=== PATIENT | female | born 1960 | race Caucasian/White ===

== ENCOUNTER → 2016-04-22 | Outpatient (CLI) | payer MEDICARE, MEDICAID ==
[~2016-04-22] MED LIST: ACYSUS PO; AMIT10TA6 PO; AZIT-21 PO; CALC-817 PO; CALC600T12 PO; CALC625T68 PO; CHOL40002 PO; CODE118S2; CODE118S2 PO; CYAN50003 PO; CYCL10TA45 GT; CYCL10TA9 PO; DEXL60CA5 PO; DICY10CA12 PO; FLUO20CA25 PO; FLUO20CA42 PO; GABAPENTIN; GBPN100C PO; HYDR-3730 PO; MAG30ORA2 PO; MULT-974 PO; NF-TYLARTH PO; OMEP20CA6 PO; OMEP40CA36 PO; PHEN118S12 PO; PNT40TEC PO; PRV20T PO; RT-ALBUINH IH; SIME180C48 PO; SIME80TA PO; SUCR1TAB23 PO; TYLENOL NO 3; ZINC PO
--- NOTE | 2016-04-22 10:02 | Diagnostic Imaging Report ---
Bilateral screening mammogram The current study was also evaluated with a Computer Aided Detection (CAD) system. INDICATION: Screening. No current complaints stated on the questionnaire. COMPARISON: 04/21/15. FINDINGS: The breasts are composed of scattered fibroglandular densities. There is a new 5 mm nodule seen in the lateral aspect of the left breast. Other prior nodules possibly cysts appear stable in both breasts. Scattered benign-appearing calcifications are seen. IMPRESSION: 5 mm new nodule in the outer aspect of the left breast. Focal compression views and ultrasound evaluation recommended. ACR BI-RADS Category 0: Incomplete. (Needs additional imaging evaluation). Result letter will be mailed to the patient. Note: At least 10% of breast cancer is not imaged by mammography. Dictated by: Dictated on workstation # [id number]
== END ==
LOC: RAD 08:57
PROVIDERS: ATTEND Family Medicine
DX: Z12.31 Encounter for screening mammogram for malignant neoplasm of breast (principal)

== ENCOUNTER → 2016-05-03 | Outpatient (CLI) | payer MEDICARE, MEDICAID ==
--- NOTE | 2016-05-03 09:19 | Diagnostic Imaging Report ---
EXAMINATION: CC and lateral diagnostic mammogram of the left breast with a Computer Aided Detection (CAD) system. INDICATION: Nodular densities in the outer aspect of the left breast. Some nodules were seen on the prior exams. FINDINGS: Focal compression views confirm three underlying adjacent nodules in the outer aspect of the left breast projecting similarly on the CC projection and are at the nipple line in the superior aspect of the left breast on the lateral view. No suspicious calcifications are seen. IMPRESSION: Indeterminate nodules in the outer aspect of the left breast. An ultrasound evaluation is pending. ACR BI-RADS Category 0: Incomplete. (Needs additional imaging evaluation). Result letter will be mailed to the patient. Note: At least 10% of breast cancer is not imaged by mammography. Dictated by: Dictated on workstation # [id number]
--- NOTE | 2016-05-03 09:20 | Diagnostic Imaging Report ---
EXAMINATION: Left breast ultrasound. INDICATION: Breast nodules seen on mammography. FINDINGS: The retroareolar area and 4 quadrants of the left breast were scanned with no underlying abnormality identified. IMPRESSION: Negative study. The subcentimeter nodules seen on mammography appear to be well defined and are likely benign in etiology. A 6 month followup left breast mammogram to ensure stability would be recommended. ACR BI-RADS Category 3: Probably benign findings. Dictated by: Dictated on workstation # [id number]
== END ==
LOC: RAD 07:34
PROVIDERS: ATTEND Family Medicine
DX: N63 Unspecified lump in breast (principal)
CPT/HCPCS: 76642

== ENCOUNTER 2016-08-12 09:30 | Outpatient (RCR) | payer MEDICARE, MEDICAID | END 2016-09-01 09:09 | disposition home or self-care (01) | PROVIDERS: ATTEND Allergy & Immunology | DX: M47.816 Spondylosis without myelopathy or radiculopathy, lumbar region (principal) ==

== ENCOUNTER 2016-09-11 14:18 | Emergency (ER) | payer MEDICARE, MEDICAID ==
[~2016-09-11] VITALS: Ht 152.4 cm; Wt 55.8 kg
--- NOTE | 2016-09-11 15:09 | Diagnostic Imaging Report ---
INDICATION: One-month history of cough. Smoking history. EXAMINATION: Two views of the chest were obtained. COMPARISON: 03/08/2016. FINDINGS: The hilar and mediastinal contours are stable and normal. There is no evidence for pneumonia. Seen only in the lateral view is some increased density projecting over the sixth thoracic vertebral body at its posteroinferior aspect. In light of history of smoking and persistent cough, further workup of this density with chest CT is recommended to more confidently exclude an underlying mass or focal infiltrate. No other potential pathology. IMPRESSION: Questionable findings for mass versus infiltrate projecting over the mid thoracic spine imperceptible on the frontal view and therefore cannot be lateralized. Findings of uncertain and questionable significance, however, in the setting of a smoking history and a persistent cough, workup with chest CT is suggested. This would not require IV contrast. Dictated by: Dictated on workstation # [id number]
--- NOTE | 2016-09-11 15:14 | ED Cough/URI ---
General Chief Complaint: Cough/Cold/Flu Symptoms Stated Complaint: COUGH/BILAT EAR PAIN Nursing Triage Note: c/o cough x 1 month. Today, patient noticed sore throat, ear pressure, and headache. Source: patient Exam Limitations: no limitations History of Present Illness Time seen by provider: 15:13 Initial Comments Patient presents to the ED with c/o 1 month onset of cough. Today noticed having a sore throat, bilateral ear pain/pressure, headache, and generalized malaise. Denies N/V/D. Timing/Duration: constant, other (1 month cough. today has UR sympotoms) Severity/Quality: dry cough Prior Episodes/Possible Cause: occasional episodes Modifying Factors: Worse With Coughing Allergies and Home Medications Allergies Coded Allergies: aspirin (Verified Allergy, Intermediate, GI UPSET, 05/29/15) tetracycline (Unverified Allergy, Unknown, 05/29/15) Home Medications Acetaminophen 650 Mg Cplt, 650 MG PO BID, (Reported) Albuterol Sulfate 1 Puff Puff, 1 PUFF IH Q4H, (Reported) Amitriptyline Hcl 10 Mg Tablet, 1 EACH PO TID, (Reported) Azithromycin 250 Mg Tablet, 250 MG PO UD, #6 Ref 0 TAKE 2 TABLETS TODAY, THEN TAKE 1 TABLET DAILY FOR 4 MORE DAYS Prescribed by: KATIA GLOVER on 09/11/16 1627 Calcium Carbonate 600 Mg Tablet, 600 MG PO BID, (Reported) Calcium Polycarbophil 625 Mg Tablet, 625 MG PO DAILY, (Reported) Cholecalciferol (Vitamin D3) 4,000 Unit Capsule, 5,000 UNIT PO DAILY, (Reported) Cyanocobalamin (Vitamin B-12) 5,000 Mcg Tab.rapdis, 5,000 MCG PO DAILY, ( Reported) Dicyclomine Hcl 10 Mg Capsule, 10 MG PO TID, (Reported) Fluoxetine HCl 20 Mg Capsule, 20 MG PO TID, (Reported) Fluoxetine Hcl 20 Mg Capsule, 3 EACH PO DAILY, (Reported) Gabapentin 100 Mg Cap, 200 MG PO TID, (Reported) Hydrocodone/Acetaminophen 1 Each Tablet, 1-2 EACH PO Q6H, #35 Prescribed by: JAZIEL SANDOVAL on 06/04/15 0905 Mag Hydrox/Al Hydrox/Simeth 30 Ml Oral.susp, 10 ML PO QID PRN for INDIGESTION, ( Reported) Multivitamin 1 Each Tablet, 1 EACH PO DAILY, (Reported) Omeprazole 40 Mg Capsule.dr, 40 MG PO BID, (Reported) Pravastatin Sod 20 Mg Tab, 40 MG PO DAILY, (Reported) Promethazine HCl/Codeine 118 Ml Syrup, #120 (Reported) Promethazine HCl/Codeine 118 Ml Syrup, 5 ML PO Q6H PRN for COUGH, #120 Ref 0 Prescribed by: KATIA GLOVER on 09/11/16 1627 Promethazine/Phenyleph/Codeine 118 Ml Syrup, 5 ML PO Q6H PRN for cough, #120 Ref 0 Prescribed by: DENISE ALAS on 09/04/15 1023 Simethicone 180 Mg Capsule, 180 MG PO PRN, (Reported) [Zinc] , 50 MG PO DAILY, (Reported) Constitutional: No chills, No dizziness, No fever, malaise, No weakness EENTM: ear pain, nose congestion, see HPI, throat pain, No ear discharge, No hearing loss, No throat swelling Respiratory: see HPI, cough, No dyspnea on exertion, No hemoptysis, No orthopnea, No phlegm, No short of breath, No wheezing Cardiovascular: no symptoms reported Gastrointestinal: No abdominal pain, No diarrhea, No loss of appetite, No nausea, No vomiting Genitourinary: no symptoms reported Musculoskeletal: no symptoms reported Skin: no symptoms reported Psychiatric/Neurological: Headache, Denies Numbness, Denies Paresthesia, Denies Tingling, Denies Weakness All Other Systems Reviewed Negative Unless Noted: Yes (Negative excepted noted.) Past Ioostaf-Rflovl-Henqtc Hx Patient Social History Alcohol Use: Denies Use Recreational Drug Use: No Smoking Status: Current Everyday Smoker Recent Foreign Travel: No Contact w/Someone Who Travel: No Recent Infectious Disease Expo: No Recent Hopitalizations: No Immunizations Up To Date Date of Pneumonia Vaccine: Dec 16, 2010 Date of Influenza Vaccine: Jan 16, 2016 Seasonal Allergies Seasonal Allergies: No Surgeries HX Surgeries: Yes (OVARIAN CYST REMOVED, RIGHT INGUINAL HERNIA, ) Surgeries: Appendectomy, Hysterectomy, Oophorectomy Respiratory Hx Respiratory Disorders: Yes (USES INHALER AND NEBULIZER, HAS SPOT ON LUNG- GOING FOR FOLLOW UP) Cardiovascular Hx Cardiac Disorders: Yes Cardiac Disorders: High Cholesterol Neurological Hx Neurological Disorders: No Genitourinary Hx Genitourinary Disorders: No Gastrointestinal Hx Gastrointestinal Disorders: Yes (SPASTIC COLON) Gastrointestinal Disorders: Gastroesophageal Reflux, Diverticulosis, Hiatal Hernia, Irritable Bowel Musculoskeletal Hx Musculoskeletal Disorders: Yes (CHRONIC FATIGUE, OSTEOARTHRITIS) Musculoskeletal Disorders: Osteoporosis, Arthritis, Fibromyalgia, Chronic Back Pain Endocrine Hx Endocrine Disorders: Yes (LOW IMMUNE SYSTEM) HEENT HX ENT Disorders: Yes (GLASSES) Loss of Vision: Bilateral Hearing Impairment: Denies Cancer Hx Cancer: No Psychosocial Hx Psychiatric Problems: Yes Behavioral Health Disorders: Anxiety, Depression Integumentary HX Skin/Integumentary Disorder: Yes (HX SHINGLES) Blood Transfusions Hx Blood Disorders: No Adverse Reaction to a Blood Tr: No Reviewed Nursing Assessment Reviewed/Agree w Nursing PMH: Yes Family Medical History Significant Family History: No Pertinent Family Hx Physical Exam Vital Signs Vital Sign - Last 12Hours 09/11/16 14:32 Temp 98.6 B/P (MAP) 126/103 Pulse Ox 98 O2 Delivery Room Air Capillary Refill : Less Than 3 Seconds General Appearance: WD/WN, no apparent distress Eyes: Bilateral Eye EOMI, Bilateral Eye Normal Inspection, Bilateral Eye PERRL HEENT: PERRL/EOMI, photophobia, pharyngeal erythema, No tonsillar exudate, other (bilateral cerumen obscuring the TM's. rt nasal mucosal swelling w/o drainage. non-tender sinuses. (+) nasal congestion.) Neck: non-tender, full range of motion, supple, normal inspection Respiratory: lungs clear, normal breath sounds, no respiratory distress Cardiovascular: regular rate, rhythm, no edema, no murmur Gastrointestinal: non tender, soft, No distended Extremities: no pedal edema, normal capillary refill Neurologic/Psychiatric: alert, normal mood/affect, oriented x 3 Skin: normal color, warm/dry Progress/Results/Core Measures Results/Orders My Orders Orders - KATIA GLOVER Chest Pa/Lat (2 View) (09/11/16 14:42) Ct Chest Wo (09/11/16 15:24) Hydrocodone/Apap 7.5/325 Tab (Lortab 7. (09/11/16 15:47) Benzonatate Capsule (Tessalon Perles) (09/11/16 16:00) Medications Given in ED Current Medications Medications Dose Ordered Sig/Isabel Route Start Time Stop Time Status Last Admin Dose Admin Benzonatate 200 mg ONCE ONCE PO 09/11/16 16:00 09/11/16 16:01 DC 09/11/16 16:03 200 MG Vital Signs/I&O Vital Sign - Last 12Hours 09/11/16 09/11/16 09/11/16 14:32 14:36 16:03 Temp 98.6 98.6 B/P (MAP) 126/103 Pulse Ox 98 O2 Delivery Room Air Room Air Blood Pressure Mean: 111 Diagnostic Imaging Diagonstic Imaging: Xray Plain Films/CT/US/NM/MRI: chest Reviewed: Reviewed by Me (radiology report reviewed by me.) Diagonstic Imaging: CT Plain Films/CT/US/NM/MRI: chest Comments FINDINGS: Lungs and airway: No endoluminal lesion in the trachea or central bronchi. No pulmonary mass or consolidation. Specifically, there is no paraspinal mass lesion to correspond to radiographic abnormality. 5 mm right lower lobe pulmonary nodule (image 36, series 2). Pleura: No pleural effusion or pneumothorax. Heart and mediastinum: Visualized thyroid is normal. No supraclavicular or axillary lymphadenopathy. No mediastinal, discrete hilar or juxtaphrenic lymphadenopathy. Heart is normal in size without pericardial effusion. Normal caliber thoracic aorta. Upper abdomen: Unenhanced upper abdomen is grossly normal with the exception of atherosclerotic calcifications of the aorta. Musculoskeletal: No concerning focal osseous lesion. No sclerotic focus to account for abnormality seen on radiograph. IMPRESSION: 1. No consolidation or mass to account for the abnormality seen on the lateral chest radiograph. This abnormality on chest radiograph is likely due to volume averaging of normal pulmonary vasculature and osseous structures. 2. Incidental note is made of a 5 mm right lower lobe pulmonary nodule. If the patient has a smoking history, followup CT chest in 6-12 months is advised to assess stability. 3. No acute cardiopulmonary process. Dictated by: Dictated on workstation # [id number] Reviewed: Reviewed by Me (radiology report reviewed by me. ) Departure Communication Progress Notes Chest x-ray findings suspicious for a mass or infiltrate overlying the thoracic spine. Radiologist recommended CT chest without contrast. I discussed this with the patient. Patient is agreeable to proceeding with CT scan of the chest. 1605 diagnostic findings discussed with the patient. Plan for discharge to home. Impression Impression: Primary Impression: Upper respiratory infection Qualified Codes: J06.9 - Acute upper respiratory infection, unspecified Additional Impression: Cough Disposition: 01 HOME, SELF-CARE Condition: Improved Departure-Patient Inst. Decision time for Depature: 16:08 Referrals: LINDSEY CAMPBELL MD (PCP) Primary Care Physician JEAN-PIERRE REYNAGA MD (Family) Primary Care Physician Patient Instructions: Bacterial Upper Respiratory Infection, Adult (DC), Cough , Adult (DC) Add. Discharge Instructions: All discharge instructions reviewed with patient and/or family. Voiced understanding. Medications as instructed. Tylenol Extra Strength over-the- counter as directed for headache or pain. Ibuprofen 800 mg by mouth every 8 hours as needed for pain or headache. Cool humidifier. Saline nasal spray and Afrin nasal spray [id number] as directed for nasal congestion. Follow-up with Dr. Campbell as an outpatient for recheck if needed. Return to the emergency department for worsened symptoms or any other concerns. Scripts Azithromycin (Zithromax) 250 Mg Tablet 250 MG PO UD, #6 TAB 0 Refills TAKE 2 TABLETS TODAY, THEN TAKE 1 TABLET DAILY FOR 4 MORE DAYS Prov: KATIA GLOVER 09/11/16 Promethazine HCl/Codeine (Promethazine-Codeine Syrup) 118 Ml Syrup 5 ML PO Q6H Y for COUGH, #120 ML 0 Refills Prov: KATIA GLOVER 09/11/16 KATIA GLOVER September 11, 2016 15:14
[2016-09-11] MEDS ORDERED: HYDROcodone/APAP 7.5 MG/325 MG (LORTAB, LORCET PLUS) TABLET PO STA (15:47)
[2016-09-11] MEDS ORDERED: BENZONATATE 100 MG (TESSALON) CAPSULE PO ONE (16:00)
--- NOTE | 2016-09-11 16:14 | Diagnostic Imaging Report ---
PROCEDURE: CT chest without contrast. TECHNIQUE: Multiple contiguous axial images were obtained through the chest without the use of intravenous contrast. INDICATION: Further evaluation of abnormal density seen on chest radiograph. COMPARISON: Chest radiograph of 09/11/2016. FINDINGS: Lungs and airway: No endoluminal lesion in the trachea or central bronchi. No pulmonary mass or consolidation. Specifically, there is no paraspinal mass lesion to correspond to radiographic abnormality. 5 mm right lower lobe pulmonary nodule (image 36, series 2). Pleura: No pleural effusion or pneumothorax. Heart and mediastinum: Visualized thyroid is normal. No supraclavicular or axillary lymphadenopathy. No mediastinal, discrete hilar or juxtaphrenic lymphadenopathy. Heart is normal in size without pericardial effusion. Normal caliber thoracic aorta. Upper abdomen: Unenhanced upper abdomen is grossly normal with the exception of atherosclerotic calcifications of the aorta. Musculoskeletal: No concerning focal osseous lesion. No sclerotic focus to account for abnormality seen on radiograph. IMPRESSION: 1. No consolidation or mass to account for the abnormality seen on the lateral chest radiograph. This abnormality on chest radiograph is likely due to volume averaging of normal pulmonary vasculature and osseous structures. 2. Incidental note is made of a 5 mm right lower lobe pulmonary nodule. If the patient has a smoking history, followup CT chest in 6-12 months is advised to assess stability. 3. No acute cardiopulmonary process. Dictated by: Dictated on workstation # [id number]
[2016-09-11] MEDS ORDERED: CODE118S2 PO (16:27)
[2016-09-11] MEDS ORDERED: AZIT250T PO (16:27)
[2016-09-11 16:35] VITALS: BP 124/90
== END 2016-09-11 16:35 | disposition home or self-care (01) ==
LOC: EDUNIT# 14:18 → ER 14:19
DX: J06.9 Acute upper respiratory infection, unspecified (principal); R91.1 Solitary pulmonary nodule; F17.210 Nicotine dependence, cigarettes, uncomplicated; Z79.899 Other long term (current) drug therapy
CPT/HCPCS: 71020; 71250; 99282

== ENCOUNTER → 2016-09-15 | Outpatient (CLI) | payer MEDICARE, MEDICAID ==
[~2016-09-15] MED LIST changes: +AZIT250T PO
[2016-09-15 13:57] LABS: MEAN PLATELET VOLUME 10.2 FL (7.4-10.4); RED BLOOD COUNT 4.18 10^6/uL (4.35-5.85); RED CELL DISTRIBUTION WIDTH 14.4 % (10.0-14.5); WHITE BLOOD COUNT 14.7 10^3/uL (4.3-11.0)
== END ==
LOC: LAB 13:42
PROVIDERS: ATTEND Nurse Practitioner Family
DX: J01.10 Acute frontal sinusitis, unspecified (principal); R05 Cough
CPT/HCPCS: 36415; 85027

== ENCOUNTER → 2016-10-31 | Outpatient (CLI) | payer MEDICARE, MEDICAID ==
--- NOTE | 2016-10-31 15:19 | Diagnostic Imaging Report ---
EXAMINATION: Left breast diagnostic mammogram with tomosynthesis performed. The current study was also evaluated with a Computer Aided Detection (CAD) system. INDICATION: Followup asymmetries in the lateral aspect of the left breast. COMPARISON: 05/03/2016 exam. FINDINGS: The previously seen asymmetries along the lateral aspect of the left breast appear less prominent on the current exam with one component on the lateral view near completely disappeared and the other component appears slightly smaller. This is in favor of a transient benign process. No adverse development. IMPRESSION: Diminished appearance of the asymmetries previously seen in the outer aspect of the left breast in favor of a benign process. Annual screening mammogram followup is recommended with the next bilateral exam due in April 2017. ACR BI-RADS Category 2: Benign findings. Result letter will be mailed to the patient. Note: At least 10% of breast cancer is not imaged by mammography. Dictated by: Dictated on workstation # [id number]
== END ==
LOC: RAD 07:49
PROVIDERS: ATTEND Family Medicine
DX: N64.89 Other specified disorders of breast (principal)

== ENCOUNTER 2016-11-09 19:58 | Emergency (ER) | payer MEDICARE, MEDICAID ==
[~2016-11-09] VITALS: Ht 152.4 cm; Wt 55.8 kg
--- NOTE | 2016-11-09 20:22 | ED Abdominal Pain ---
General Chief Complaint: General Problems/Pain Stated Complaint: STOMACH PAIN Nursing Triage Note: PT AMBULATED TO ROOM. PT COMPLAINS OF DIARRHEA AND STOMACH PAIN SINCE APPROX. 1130 THIS MORNING. PT STATES SHE HAS HAD 5 EPISODES OF DIARRHEA SINCE 1130 THIS MORNING. Sepsis Screen: No Definite Risk Source of Information: Patient History of Present Illness Time Seen By Provider: 20:08 Initial Comments PT ARRIVES VIA POV C/O GENERALIZED ABDOMINAL PAIN SINCE AROUND 11:30 THIS AM ATE A SALAD WITH TOMATOES IN IT AROUND 11:00,AND PAIN BEGAN SHORTLY AFTERWARD ALSO HAD DIARRHEA WITH IT. HAS HAD > 5 <10 STOOLS TODAY--TOOK OTC ANTIDIARRHEAL TODAY AROUND 1:00 PM AND DIARRHEA HAS SLOWED DOWN ALSO TOOK MAALOX X 1 DOSE, WITHOUT IMPROVEMENT NO NAUSEA/VOMITING NO FEVER NO URINARY SYMPTOMS AND VOIDING A NORMAL AMOUNT--VOIDED IN WAITING ROOM HAS CONTINUED TO EAT AND DRINK THIS AFTERNOON--HAD CHICKEN AND RICE THIS AFTERNOON NO KNOWN SICK CONTACTS OR SUSPICIOUS FOODS PT STATES SHE HAS HISTORY OF SIMILAR SYMPTOMS, AND HAS HISTORY OF IBS AND SPASTIC COLON, BUT THIS "DOESN'T FEEL THE SAME" PT HAS NOT BEEN TAKING HER GI MEDICATIONS LATELY--STATES SHE "WASN'T HAVING PROBLEMS" PCP: DR. WATSON SURGEON: DR. SANDOVAL Allergies and Home Medications Allergies Coded Allergies: aspirin (Verified Allergy, Intermediate, GI UPSET, 05/29/15) tetracycline (Unverified Allergy, Unknown, 05/29/15) Home Medications Acetaminophen 650 Mg Cplt, 650 MG PO BID, (Reported) Albuterol Sulfate 1 Puff Puff, 1 PUFF IH Q4H, (Reported) Amitriptyline Hcl 10 Mg Tablet, 1 EACH PO TID, (Reported) Azithromycin 250 Mg Tablet, 250 MG PO UD, #6 Ref 0 TAKE 2 TABLETS TODAY, THEN TAKE 1 TABLET DAILY FOR 4 MORE DAYS Prescribed by: KATIA GLOVER on 09/11/16 1627 Calcium Carbonate 600 Mg Tablet, 600 MG PO BID, (Reported) Calcium Polycarbophil 625 Mg Tablet, 625 MG PO DAILY, (Reported) Cholecalciferol (Vitamin D3) 4,000 Unit Capsule, 5,000 UNIT PO DAILY, (Reported) Cyanocobalamin (Vitamin B-12) 5,000 Mcg Tab.rapdis, 5,000 MCG PO DAILY, ( Reported) Dicyclomine Hcl 10 Mg Capsule, 10 MG PO TID, (Reported) Fluoxetine HCl 20 Mg Capsule, 20 MG PO TID, (Reported) Fluoxetine Hcl 20 Mg Capsule, 3 EACH PO DAILY, (Reported) Gabapentin 100 Mg Cap, 200 MG PO TID, (Reported) Hydrocodone/Acetaminophen 1 Each Tablet, 1-2 EACH PO Q6H, #35 Prescribed by: JAZIEL SANDOVAL on 06/04/15 0905 Hyoscyamine Sulfate 0.125 Mg Tab.subl, 1-2 TAB SL Q4H, #15 Prescribed by: HALLE WATSON on 11/09/162 Lactobacillus Acidophilus 1 Each Capsule, 2 EACH PO QID, #80 Prescribed by: HALLE WATSON on 11/09/162 Mag Hydrox/Al Hydrox/Simeth 30 Ml Oral.susp, 10 ML PO QID PRN for INDIGESTION, ( Reported) Multivitamin 1 Each Tablet, 1 EACH PO DAILY, (Reported) Omeprazole 40 Mg Capsule.dr, 40 MG PO BID, (Reported) Pravastatin Sod 20 Mg Tab, 40 MG PO DAILY, (Reported) Promethazine HCl/Codeine 118 Ml Syrup, #120 (Reported) Promethazine HCl/Codeine 118 Ml Syrup, 5 ML PO Q6H PRN for COUGH, #120 Ref 0 Prescribed by: KATIA GLOVER on 09/11/16 1627 Promethazine/Phenyleph/Codeine 118 Ml Syrup, 5 ML PO Q6H PRN for cough, #120 Ref 0 Prescribed by: DENISE ALAS on 09/04/15 1023 Simethicone 180 Mg Capsule, 180 MG PO PRN, (Reported) [Zinc] , 50 MG PO DAILY, (Reported) Review of Systems Constitutional: other (CHRONICALLY TIRED) Respiratory: No Symptoms Reported Cardiovascular: No Symptoms Reported Gastrointestinal: See HPI, Abdominal Pain, Diarrhea, Denies Nausea, Denies Poor Appetite, Denies Poor Fluid Intake, Denies Rectal Bleeding, Denies Vomiting Genitourinary: No Symptoms Reported Musculoskeletal: no symptoms reported Skin: no symptoms reported Psychiatric/Neurological: No Symptoms Reported Endocrine: No Symptoms Reported Hematologic/Lymphatic: No Symptoms Reported Past Zigqiom-Qpprns-Pljdli Hx Patient Social History Alcohol Use: Occasionally Uses Recreational Drug Use: No Smoking Status: Current Everyday Smoker (3 PPD, NOW LESS THAN 1 PPD) Type Used: Cigarettes 2nd Hand Smoke Exposure: No Recent Foreign Travel: No Contact w/Someone Who Travel: No Recent Infectious Disease Expo: No Recent Hopitalizations: No Immunizations Up To Date Date of Pneumonia Vaccine: Dec 16, 2010 Date of Influenza Vaccine: Jan 16, 2016 Seasonal Allergies Seasonal Allergies: No Surgeries HX Surgeries: Yes (OVARIAN CYST REMOVED, RIGHT INGUINAL HERNIA, PERIUMBILICAL HERNIA REPAIR; HYST / BSO ; EGD) Surgeries: Abdominal, Appendectomy, Hysterectomy, Oophorectomy, Tubal Ligation Respiratory Hx Respiratory Disorders: Yes (USES INHALER AND NEBULIZER, HAS SPOT ON LUNG- GOING FOR FOLLOW UP) Respiratory Disorders: COPD Cardiovascular Hx Cardiac Disorders: Yes Cardiac Disorders: High Cholesterol Neurological Hx Neurological Disorders: No 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 System Female 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, 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 Genitourinary Hx Genitourinary Disorders: No Gastrointestinal Hx Gastrointestinal Disorders: Yes (SPASTIC COLON; GASTRITIS) Gastrointestinal Disorders: Abdominal Hernia, Gastroesophageal Reflux, Diverticulosis, Hiatal Hernia, Irritable Bowel Musculoskeletal Hx Musculoskeletal Disorders: Yes (CHRONIC FATIGUE, OSTEOARTHRITIS) Musculoskeletal Disorders: Osteoporosis, Arthritis, Fibromyalgia, Chronic Back Pain Endocrine Hx Endocrine Disorders: Yes ("LOW IMMUNE SYSTEM") HEENT HX ENT Disorders: Yes (GLASSES) Loss of Vision: Bilateral Hearing Impairment: Denies Cancer Hx Cancer: No Psychosocial Hx Psychiatric Problems: Yes Behavioral Health Disorders: Anxiety, Depression Integumentary HX Skin/Integumentary Disorder: Yes (HX SHINGLES) Blood Transfusions Hx Blood Disorders: No Adverse Reaction to a Blood Tr: No Family Medical History Significant Family History: No Pertinent Family Hx Physical Exam Vital Signs VS - Last 72 Hours, by Label 11/09/16 11/09/16 20:10 22:04 Temp 98.0 98.0 Pulse 77 77 Resp 16 16 B/P (MAP) 125/73 Pulse Ox 99 99 O2 Delivery Room Air Room Air Capillary Refill : Less Than 3 Seconds General Appearance: WD/WN, no apparent distress, other (WALKS UPRIGHT AND MOVES WITHOUT DIFFICULTY; REEKS OF CIGARETTES) HEENT: PERRL/EOMI, other (EDENTULOUS; ORAL MUCOSA MOIST) Respiratory: normal breath sounds, no respiratory distress, no accessory muscle use Cardiovascular: regular rate, rhythm, no edema, no JVD, no murmur Gastrointestinal: soft, no organomegaly, no pulsatile mass, abnormal bowel sounds (HYPERACTIVE), No distended, No guarding, No rebound, tenderness (MILD DIFFUSE), No hernia, No mass Back: normal inspection, no CVA tenderness, no vertebral tenderness 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, no motor/sensory deficits, alert, normal mood/affect, oriented x 3 Skin: normal color, warm/dry Progress/Results/Core Measures Results/Orders Lab Results Laboratory Tests Test 11/09/16 20:21 11/09/16 20:59 Range/Units White Blood Count 9.1 4.3-11.0 10^3/uL Red Blood Count 4.21 L 4.35-5.85 10^6/uL Hemoglobin 13.7 11.5-16.0 G/DL Hematocrit 41 35-52 % Mean Corpuscular Volume 97 80-99 FL Mean Corpuscular Hemoglobin 33 25-34 PG Mean Corpuscular Hemoglobin Concent 34 32-36 G/DL Red Cell Distribution Width 14.2 10.0-14.5 % Platelet Count 296 130-400 10^3/uL Mean Platelet Volume 10.3 7.4-10.4 FL Neutrophils (%) (Auto) 52 42-75 % Lymphocytes (%) (Auto) 37 12-44 % Monocytes (%) (Auto) 9 0-12 % Eosinophils (%) (Auto) 3 0-10 % Basophils (%) (Auto) 0 0-10 % Neutrophils # (Auto) 4.7 1.8-7.8 X 10^3 Lymphocytes # (Auto) 3.3 1.0-4.0 X 10^3 Monocytes # (Auto) 0.8 0.0-1.0 X 10^3 Eosinophils # (Auto) 0.2 0.0-0.3 10^3/uL Basophils # (Auto) 0.0 0.0-0.1 10^3/uL Sodium Level 143 135-145 MMOL/L Potassium Level 3.1 L 3.6-5.0 MMOL/L Chloride Level 108 H 98-107 MMOL/L Carbon Dioxide Level 29 21-32 MMOL/L Anion Gap 6 5-14 MMOL/L Blood Urea Nitrogen 7 7-18 MG/DL Creatinine 0.72 0.60-1.30 MG/DL Estimat Glomerular Filtration Rate > 60 BUN/Creatinine Ratio 10 Glucose Level 101 70-105 MG/DL Calcium Level 8.9 8.5-10.1 MG/DL Total Bilirubin 0.2 0.1-1.0 MG/DL Aspartate Amino Transf (AST/SGOT) 11 5-34 U/L Alanine Aminotransferase (ALT/SGPT) 13 0-55 U/L Alkaline Phosphatase 48 40-136 U/L Total Protein 6.2 L 6.4-8.2 GM/DL Albumin 3.9 3.2-4.5 GM/DL Amylase Level 43 25-125 U/L Lipase 51 8-78 U/L Urine Color YELLOW Urine Clarity CLEAR Urine pH 7 5-9 Urine Specific [place]ham 1.010 L 1.016-1.022 Urine Protein NEGATIVE NEGATIVE Urine Glucose (UA) NEGATIVE NEGATIVE Urine Ketones NEGATIVE NEGATIVE Urine Nitrite NEGATIVE NEGATIVE Urine Bilirubin NEGATIVE NEGATIVE Urine Urobilinogen NORMAL NORMAL MG/DL Urine Leukocyte Esterase 2+ H NEGATIVE Urine RBC (Auto) NEGATIVE NEGATIVE Urine RBC NONE /HPF Urine WBC 2-5 /HPF Urine Squamous Epithelial Cells 0-2 /HPF Urine Crystals NONE /LPF Urine Bacteria NEGATIVE /HPF Urine Casts NONE /LPF Urine Mucus NEGATIVE /LPF Urine Culture Indicated NO My Orders Orders - HALLE WATSON DO Saline Lock/Iv-Start (11/09/16 20:08) Amylase (11/09/16 20:08) Cbc With Automated Diff (11/09/16 20:08) Comprehensive Metabolic Panel (11/09/16 20:08) Lipase (11/09/16 20:08) Ua Culture If Indicated (11/09/16 20:08) Saline Lock/Iv-Start (11/09/16 20:29) Lactated Ringers (Lr 1000 Ml Iv Solution (11/09/16 20:29) Hyoscyamine Sl Tablet (Levsin Sl Tablet) (11/09/16 20:30) Ct Abdomen/Pelvis W (11/09/16 20:50) Iohexol Injection (Omnipaque 350 Mg/Ml 1 (11/09/16 21:00) Ns (Ivpb) (Sodium Chloride 0.9% Ivpb Bag (11/09/16 21:00) Rx-Hyoscyamine Tab (Rx-Levsin Sl) (11/09/16 21:53) Rx-Hyoscyamine Tab (Rx-Levsin Sl) (11/09/16 21:56) Medications Given in ED Current Medications Medications Dose Ordered Sig/Isabel Route Start Time Stop Time Status Last Admin Dose Admin Hyoscyamine Sulfate 0.25 mg ONCE ONCE PO 11/09/16 20:30 11/09/16 20:31 DC 11/09/16 20:45 0.25 MG Iohexol 100 ml ONCE ONCE IV 11/09/16 21:00 11/09/16 22:13 DC 11/09/16 21:05 100 ML Lactated Ringer's 1,000 ml @ 0 mls/hr Q0M ONCE IV 11/09/16 20:29 11/09/16 20:30 DC 11/09/16 20:46 1,000 MLS/HR Sodium Chloride 100 ml ONCE ONCE IV 11/09/16 21:00 11/09/16 22:13 DC 11/09/16 21:05 80 ML Vital Signs/I&O Vital Sign - Last 12Hours 11/09/16 11/09/16 20:10 22:04 Temp 98.0 98.0 Pulse 77 77 Resp 16 16 B/P (MAP) 125/73 Pulse Ox 99 99 O2 Delivery Room Air Room Air Intake and Output 11/10/16 00:00 Intake Total 1000 ml Balance 1000 ml Blood Pressure Mean: 90 Progress Note : Progress Note NO DIARRHEA DURING ER STAY SYMPTOMS RESOLVED AT DISMISSAL Diagnostic Imaging Comments CT ABDOMEN/[id number] FLUID FILLED SMALL BOWEL, QUESTIONABLE ENTERITIS , PER RADIOLOGIST REPORT @ 4560 Reviewed: Reviewed by Me Departure Impression Impression: Primary Impression: Enteritis Additional Impression: POSSIBLE IBS /SPASTIC COLON FLARE Disposition: 01 HOME, SELF-CARE Condition: Improved Departure-Patient Inst. Referrals: LINDSEY WATSON MD (PCP/Family) Primary Care Physician Patient Instructions: Irritable Bowel Syndrome (DC), Viral Gastroenteritis, Adult (DC) Add. Discharge Instructions: CLEAR LIQUIDS--WATER, BROTH, JELLO, GATORADE TOMORROW IF YOU ARE BETTER, ADD BRATS DIET TO CLEAR LIQUIDS--BANANAS, RICE, APPLESAUCE, TOAST, SALTINES FOLLOW UP WITH YOUR DR IN 2 DAYS IF NO BETTER All discharge instructions reviewed with patient and/or family. Voiced understanding. Scripts Hyoscyamine Sulfate (Levsin-Sl) 0.125 Mg Tab.subl 1-2 TAB SL Q4H for Abdominal Pain, #15 TAB Prov: HALLE WATSON DO 11/09/16 Lactobacillus Acidophilus (Acidophilus) 1 Each Capsule 2 EACH PO QID, #80 CAP Prov: HALLE WATSON DO 11/09/16 HALLE WATSON DO Nov 09, 2016 20:22
[2016-11-09 20:29] LABS: LYMPHOCYTES % (AUTO) 37 % (12-44); MEAN CORPUSCULAR HEMOGLOBIN 33 PG (25-34); MEAN CORPUSCULAR HGB CONC 34 G/DL (32-36); MEAN CORPUSCULAR VOLUME 97 FL (80-99); MEAN PLATELET VOLUME 10.3 FL (7.4-10.4); MONOCYTES % (AUTO) 9 % (0-12); NEUTROPHILS % (AUTO) 52 % (42-75); PLATELET COUNT 296 10^3/uL (130-400); RED BLOOD COUNT 4.21 10^6/uL (4.35-5.85); RED CELL DISTRIBUTION WIDTH 14.2 % (10.0-14.5); WHITE BLOOD COUNT 9.1 10^3/uL (4.3-11.0)
[2016-11-09] MEDS ORDERED: LACTATED RINGERS 1,000 ML IV ONE (20:29)
[2016-11-09 20:30] LABS: BASOPHILS % (AUTO) 0 % (0-10); EOSINOPHILS # (AUTO) 0.2 10^3/uL (0.0-0.3); EOSINOPHILS % (AUTO) 3 % (0-10); LYMPHOCYTES # (AUTO) 3.3 X 10^3 (1.0-4.0); MONOCYTES # (AUTO) 0.8 X 10^3 (0.0-1.0); NEUTROPHILS # (AUTO) 4.7 X 10^3 (1.8-7.8)
[2016-11-09] MEDS ORDERED: HYOSCYAMINE 0.125 MG (LEVSIN) TAB PO ONE (20:30)
[2016-11-09 20:47] LABS: ALANINE AMINOTRANSFERASE 13 U/L (0-55); ALBUMIN 3.9 GM/DL (3.2-4.5); AMYLASE 43 U/L (25-125); ANION GAP 6 MMOL/L (5-14); ASPARTATE AMINO TRANSFERASE 11 U/L (5-34); BILIRUBIN,TOTAL 0.2 MG/DL (0.1-1.0); BLOOD UREA NITROGEN 7 MG/DL (7-18); BUN/CREATININE RATIO 10; CALCIUM 8.9 MG/DL (8.5-10.1); CARBON DIOXIDE 29 MMOL/L (21-32); CHLORIDE 108 MMOL/L (98-107); CREATININE SERUM 0.72 MG/DL (0.60-1.30); GFR ESTIMATED > 60; GLUCOSE 101 MG/DL (70-105); LIPASE 51 U/L (8-78); POTASSIUM 3.1 MMOL/L (3.6-5.0); SODIUM 143 MMOL/L (135-145); TOTAL PROTEIN 6.2 GM/DL (6.4-8.2)
[2016-11-09] MEDS ORDERED: IOHEXOL 350 MG/ML 100 ML (OMNIPAQUE 350) VIAL IV ONE (21:00)
[2016-11-09] MEDS ORDERED: NS 100 ML (IVPB) BAG IV ONE (21:00)
[2016-11-09 21:04] LABS: BILIRUBIN,URINE NEGATIVE (NEGATIVE); KETONES,URINE NEGATIVE (NEGATIVE); LEUKOCYTE ESTERASE ,URINE 2+ (NEGATIVE); NITRITE,URINE NEGATIVE (NEGATIVE); PH,URINE 7 (5-9); PROTEIN,URINE NEGATIVE (NEGATIVE); UROBILINOGEN,URINE NORMAL (NORMAL)
[2016-11-09 21:12] LABS: SQUAMOUS EPITHELIAL CELL,UR 0-2 /HPF
--- NOTE | 2016-11-09 21:34 | Diagnostic Imaging Report ---
PROCEDURE: CT abdomen and pelvis with contrast. TECHNIQUE: Multiple contiguous axial images were obtained through the abdomen and pelvis after administration of intravenous contrast. INDICATION: Abdominal pain and diarrhea. Compared 10/15/2015 FINDINGS: There is noninflamed sigmoid diverticulosis. There were no findings suggestive of CT evidence for focal or generalized colitis. Pelvic small bowel loops fluid containing and borderline ectatic but no differential air-fluid levels. There are postoperative changes of repair of a supraumbilical ventral abdominal wall hernia with some regional subcutaneous and abdominal wall induration; this is unchanged from the prior. No recurrent herniated viscus. Liver, spleen, gallbladder, adrenals, pancreas and unobstructed kidneys unremarkable, nonaneurysmal atherosclerosis chronic. Urinary bladder unremarkable. There is no adnexal lesion. IMPRESSION: Noninflamed diverticulosis. No findings of colitis. There is borderline ectasia, fluid containing pelvic small bowel. This is of questionable significance, a mild enteritis could not be excluded. No obstruction, perforation, fluid collection or ascites. Stable postoperative changes to the supraumbilical ventral abdominal wall. No hepatobiliary abnormality. Dictated by: Dictated on workstation # [id number]
[2016-11-09] MEDS ORDERED: HYOS0.1283 SL (21:52)
[2016-11-09] MEDS ORDERED: LACT1CAP8 PO (21:52)
[2016-11-09] MEDS ORDERED: RX-HYOSCYAMINE 0.125 MG SL (LEVSIN) PPK#6 SL STA (21:53)
[2016-11-09] MEDS ORDERED: RX-HYOSCYAMINE 0.125 MG SL (LEVSIN) PPK#6 ONE (21:56)
[2016-11-09 22:04] VITALS: BP 125/73
== END 2016-11-09 22:04 | disposition home or self-care (01) ==
LOC: EDUNIT# 19:58 → ER 20:00
DX: K52.9 Noninfective gastroenteritis and colitis, unspecified (principal); J44.9 Chronic obstructive pulmonary disease, unspecified; E78.00 Pure hypercholesterolemia, unspecified; K21.9 Gastro-esophageal reflux disease without esophagitis; M81.0 Age-related osteoporosis without current pathological fracture; M19.90 Unspecified osteoarthritis, unspecified site; M54.9 Dorsalgia, unspecified; G89.29 Other chronic pain; F41.9 Anxiety disorder, unspecified; F32.9 Major depressive disorder, single episode, unspecified; F17.210 Nicotine dependence, cigarettes, uncomplicated; Z87.19 Personal history of other diseases of the digestive system; Z90.49 Acquired absence of other specified parts of digestive tract; Z90.710 Acquired absence of both cervix and uterus; Z98.51 Tubal ligation status
CPT/HCPCS: 36415; 74177; 80053; 81000; 82150; 83690; 85025; 96360

== ENCOUNTER → 2017-01-25 | Outpatient (CLI) | payer MEDICARE, MEDICAID ==
[~2017-01-25] MED LIST changes: +HYOS0.1283 SL; +IOHEXOL 350 MG/ML 100 ML (OMNIPAQUE 350) VIAL IV ONE; +LACT1CAP8 PO; +NS 100 ML (IVPB) BAG IV ONE
[2017-01-25 09:46] LABS: BLOOD UREA NITROGEN 13 MG/DL (7-18); BUN/CREATININE RATIO 19; CREATININE SERUM 0.68 MG/DL (0.60-1.30); GFR ESTIMATED > 60
--- NOTE | 2017-01-25 11:20 | Diagnostic Imaging Report ---
PROCEDURE: CT abdomen and pelvis with contrast. TECHNIQUE: Multiple contiguous axial images were obtained through the abdomen and pelvis after administration of intravenous contrast. INDICATION: Abdominal pain. History of umbilical hernia. 100 mL of Omnipaque 350 is administered intravenously. FINDINGS: The lung bases demonstrate minimal atelectasis. The liver, the gallbladder, the spleen, the pancreas and the adrenal glands appear unremarkable. The kidneys have symmetric contrast enhancement and excretion. There is no hydronephrosis. The abdominal aorta is normal in caliber. No para-aortic significantly enlarged lymph nodes seen. There is diverticulosis. No diverticulitis. There is evidence of prior periumbilical ventral hernia repair with a mesh seen. There is no evidence of hernia recurrence. There is nonspecific stranding seen above the umbilicus level in the subcutaneous fat which may relate to scarring. It is unchanged from 11/09/2016 exam. No significant free fluid or fluid collection in the abdomen or pelvis seen. The osseous structures appear grossly unremarkable. IMPRESSION: Post ventral hernia repair changes similar to the prior exam. Diverticulosis. No diverticulitis. Dictated by: Dictated on workstation # [id number]
== END ==
LOC: RAD 09:12
PROVIDERS: ATTEND Surgery
DX: K57.30 Diverticulosis of large intestine without perforation or abscess without bleeding (principal); Z98.890 Other specified postprocedural states; R10.84 Generalized abdominal pain
CPT/HCPCS: 36415; 74177; 82565; 84520

== ENCOUNTER 2017-09-24 18:54 | Emergency (ER) | payer MEDICARE, MEDICAID ==
[~2017-09-24] VITALS: Ht 152.4 cm; Wt 55.8 kg
[~2017-09-24 18:54] MED LIST changes: -IOHEXOL 350 MG/ML 100 ML (OMNIPAQUE 350) VIAL IV ONE; -NS 100 ML (IVPB) BAG IV ONE
--- NOTE | 2017-09-24 20:47 | ED Lower Extremity ---
General Chief Complaint: Lower Extremity Stated Complaint: R LEG TIGHTNESS/REDNESS Nursing Triage Note: c/o R lower leg pain, swelling x 2 days. patient reports taking 2 hydrocodone tablets and 1 flexeril without relief. patient reports that her cholesterol medication was recently doubled in dosage Nursing Sepsis Screen: No Definite Risk History of Present Illness Date Seen by Provider: Sep 24, 2017 Time Seen by Provider: 20:30 Initial Comments 57-year-old female Patient reports that she was walking quickly to almost a "trotting" pace on Monday when she had immediate onset of pain in her right medial gastrocnemius. Since then the pain has continued to worsen, she has been taking hydrocodone and Flexeril with minimal improvement in her symptoms. She has no history of blood clots and only risk factor is tobacco use. She has a history of restless leg syndrome and fibromyalgia. Onset: last week Pain/Injury Location: right leg Modifying Factors: Improves With Pain Medication, Improves With Rest Allergies and Home Medications Allergies Coded Allergies: aspirin (Verified Allergy, Intermediate, GI UPSET, 05/29/15) tetracycline (Unverified Allergy, Unknown, 05/29/15) Home Medications Acetaminophen 650 Mg Cplt, 650 MG PO BID, (Reported) Albuterol Sulfate 1 Puff Puff, 1 PUFF IH Q4H, (Reported) Amitriptyline Hcl 10 Mg Tablet, 1 EACH PO TID, (Reported) Calcium Carbonate 600 Mg Tablet, 600 MG PO BID, (Reported) Calcium Polycarbophil 625 Mg Tablet, 625 MG PO DAILY, (Reported) Cholecalciferol (Vitamin D3) 4,000 Unit Capsule, 5,000 UNIT PO DAILY, (Reported) Cyanocobalamin (Vitamin B-12) 5,000 Mcg Tab.rapdis, 5,000 MCG PO DAILY, ( Reported) Dicyclomine Hcl 10 Mg Capsule, 10 MG PO TID, (Reported) Fluoxetine HCl 20 Mg Capsule, 20 MG PO TID, (Reported) Fluoxetine Hcl 20 Mg Capsule, 3 EACH PO DAILY, (Reported) Gabapentin 100 Mg Cap, 200 MG PO TID, (Reported) Hydrocodone/Acetaminophen 1 Each Tablet, 1-2 EACH PO Q6H Prescribed by: JAZIEL SANDOVAL on 06/04/15 0905 Hyoscyamine Sulfate 0.125 Mg Tab.subl, 1-2 TAB SL Q4H Prescribed by: HALLE WATSON on 11/09/162151 Mag Hydrox/Al Hydrox/Simeth 30 Ml Oral.susp, 10 ML PO QID PRN for INDIGESTION, ( Reported) Multivitamin 1 Each Tablet, 1 EACH PO DAILY, (Reported) Omeprazole 40 Mg Capsule.dr, 40 MG PO BID, (Reported) Pravastatin Sod 20 Mg Tab, 40 MG PO DAILY, (Reported) [Zinc] , 50 MG PO DAILY, (Reported) Patient Home Medication List Home Medication List Reviewed: Yes Constitutional: no symptoms reported, see HPI Musculoskeletal: see HPI, muscle pain (right gastrocnemius) All Other Systems Reviewed Negative Unless Noted: Yes Past Zkpoyhq-Qdvbjo-Hjtruu Hx Past Med/Social Hx: Reviewed Nursing Past Med/Soc Hx Patient Social History Alcohol Use: Denies Use Recreational Drug Use: No Smoking Status: Current Everyday Smoker Type Used: Cigarettes 2nd Hand Smoke Exposure: No Recent Foreign Travel: No Contact w/Someone Who Travel: No Recent Infectious Disease Expo: No Recent Hopitalizations: No Immunizations Up To Date Date of Pneumonia Vaccine: Dec 16, 2010 Date of Influenza Vaccine: Jan 16, 2016 Seasonal Allergies Seasonal Allergies: No Past Medical History Surgeries: Yes (OVARIAN CYST REMOVED, RIGHT INGUINAL HERNIA, ) Abdominal, Appendectomy, Hysterectomy, Oophorectomy, Tubal Ligation Respiratory: Yes (USES INHALER AND NEBULIZER, HAS SPOT ON LUNG-GOING FOR FOLLOW UP) COPD Cardiac: Yes High Cholesterol Neurological: No 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, 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 Genitourinary: No Gastrointestinal: Yes (SPASTIC COLON) Abdominal Hernia, Gastroesophageal Reflux, Diverticulosis, Hiatal Hernia, Irritable Bowel Musculoskeletal: Yes (CHRONIC FATIGUE, OSTEOARTHRITIS) Osteoporosis, Arthritis, Fibromyalgia, Chronic Back Pain Endocrine: Yes (LOW IMMUNE SYSTEM) HEENT: No Loss of Vision: Bilateral Hearing Impairment: Denies Cancer: No Psychosocial: Yes Anxiety, Depression Integumentary: Yes (HX SHINGLES) Blood Disorders: No Adverse Reaction/Blood Tranf: No Family Medical History No Pertinent Family Hx Physical Exam Vital Signs Vital Signs - First Documented 09/24/17 19:57 Temp 98.2 Pulse 87 Resp 18 B/P (MAP) 129/114 (119) Pulse Ox 97 Capillary Refill : Less Than 3 Seconds General Appearance: WD/WN, no apparent distress Cardiovascular: normal peripheral pulses (pedal pulses 2+ and symmetric), regular rate, rhythm Respiratory: chest non-tender, lungs clear, normal breath sounds Gastrointestinal: normal bowel sounds, non tender, soft Hips: bilateral hip non-tender, bilateral hip normal inspection, bilateral hip normal range of motion, bilateral hip no evidence of injury Legs: right leg soft tissue tenderness (medial gastrocnemius), right leg swelling (trace swelling in the gastrocnemius and ankle, no swelling in the foot ), right leg other (negative Homans sign right lower extremity, capillary refill less than 2 seconds) Ankles: right ankle non-tender, right ankle normal inspection, right ankle normal range of motion, right ankle no evidence of injury Feet: right foot non-tender, right foot normal inspection, right foot normal range of motion, right foot no evidence of injury Neurologic/Tendon: normal sensation, normal motor functions, normal tendon functions Neurologic/Psychiatric: no motor/sensory deficits, alert, normal mood/affect, oriented x 3 Progress/Results/Core Measures Results/Orders Vital Signs/I&O 09/24/17 09/24/17 19:57 20:53 Temp 98.2 98.2 Pulse 87 87 Resp 18 18 B/P (MAP) 129/114 (119) 154/62 (119) Pulse Ox 97 97 Blood Pressure Mean: 119 Progress Progress Note : Time: 20:30 Progress Note Initial evaluation completed, discussed findings with the patient and her friend. No evidence to suggest a blood clot, since she had an injury while moving it is more likely that she has a strain of the calf muscle. A 4 inch Darwin wrap was placed on the right lower extremity. She was instructed in partial weightbearing use with crutches. Discharge instructions and return precautions were reviewed with her. Departure Impression Primary Impression: Gastrocnemius strain Qualified Codes: S86.111A - Strain of other muscle(s) and tendon(s) of posterior muscle group at lower leg level, right leg, initial encounter Disposition: 01 HOME, SELF-CARE Condition: Stable Departure-Patient Inst. Decision time for Depature: 20:45 Referrals: LINDSEY WATSON MD (PCP/Family) Primary Care Physician Patient Instructions: Muscle Strain (DC) Add. Discharge Instructions: Use crutches as needed until able to ambulate pain free. You may put weight on her right lower extremity as tolerated. Alternate between heat and ice to the right calf. Use your pain medication already prescribed by your primary care provider. Elevate your right lower leg higher than your heart. Follow-up with your primary care provider if symptoms are not improving or worsen. Return to the emergency department for new, urgent health care problems. All discharge instructions reviewed with patient and/or family. Voiced understanding. Work/School Note: Work Release Form Date Seen in the Emergency Department: Sep 24, 2017 Return to Work: Oct 02, 2017 Restrictions: Need Release from Doctor FELI CORNEJO Sep 24, 2017 20:47
[2017-09-24 20:53] VITALS: BP 154/62
== END 2017-09-24 20:54 | disposition home or self-care (01) ==
LOC: EDUNIT# 18:54 → ER 18:55
DX: S86.111A Strain of other muscle(s) and tendon(s) of posterior muscle group at lower leg level, right leg, initial encounter (principal); G25.81 Restless legs syndrome; J44.9 Chronic obstructive pulmonary disease, unspecified; E78.00 Pure hypercholesterolemia, unspecified; K21.9 Gastro-esophageal reflux disease without esophagitis; M81.0 Age-related osteoporosis without current pathological fracture; F41.9 Anxiety disorder, unspecified; F32.9 Major depressive disorder, single episode, unspecified; F17.210 Nicotine dependence, cigarettes, uncomplicated; Z90.89 Acquired absence of other organs; Z98.51 Tubal ligation status; Z86.19 Personal history of other infectious and parasitic diseases; Z90.710 Acquired absence of both cervix and uterus; Z87.19 Personal history of other diseases of the digestive system; Z87.448 Personal history of other diseases of urinary system; Z88.6 Allergy status to analgesic agent; Z88.1 Allergy status to other antibiotic agents; Z79.51 Long term (current) use of inhaled steroids; X50.0XXA Overexertion from strenuous movement or load, initial encounter; Y93.01 Activity, walking, marching and hiking
CPT/HCPCS: 99283

== ENCOUNTER 2018-04-20 14:47 | Outpatient (RCR) | payer MEDICARE, MEDICAID ==
[~2018-04-20 14:47] MED LIST changes: -CODE118S2; +CODE118S4; +CODE118S4 PO
== END 2018-04-20 15:28 | disposition home or self-care (01) ==
PROVIDERS: ATTEND Orthopaedic Surgery
DX: M75.41 Impingement syndrome of right shoulder (principal)

== ENCOUNTER 2021-10-01 00:04 | Emergency (ER) | payer MEDICARE, MEDICAID ==
[~2021-10-01 00:04] MED LIST changes: -CALC600T12 PO; +CALC600T91 PO; -OMEP40CA36 PO; +OMEP40CA6 PO; -PHEN118S12 PO; +PHEN118S29 PO
--- NOTE | 2021-10-01 00:44 | ED General ---
General Chief Complaint: Trauma-Non Activation Stated Complaint: FALL,HEAD & RT LEG PAIN History of Present Illness Date Seen by Provider: Oct 01, 2021 Time Seen by Provider: 00:40 Initial Comments 61-year-old female is here with complaints of having a fall today while she was taking a shower, and she tripped over her bath mat and fell back hitting her head and the back of her neck on the edge of the tub. Pt also c/o right groin pain by her pubic symphysis. Pt is able to ambulate. Denies blurry vision, hearing abnormalities, dizziness, nausea vomiting, LOC. Allergies and Home Medications Allergies Coded Allergies: aspirin (Verified Allergy, Intermediate, GI UPSET, 05/29/15) acetaminophen (Verified Allergy, Unknown, 10/01/21) caffeine (Verified Allergy, Unknown, 10/01/21) metronidazole (Verified Allergy, Unknown, 10/01/21) tetracycline (Unverified Allergy, Unknown, 05/29/15) Patient Home Medication List Home Medication List Reviewed: Yes Acetaminophen (Tylenol Arth Pain (Non-Formulary)) 650 Mg Cplt, 650 MG PO BID, (Reported) Entered as Reported by: PASTORA CORCORAN on 02/13/13 0759 Albuterol Sulfate (Ventolin Hfa) 1 Puff Puff, 1 PUFF IH Q4H, (Reported) Entered as Reported by: PASTORA CORCORAN on 02/13/13 075 Amitriptyline Hcl (Amitriptyline Hcl) 10 Mg Tablet, 1 EACH PO TID, (Reported) Entered as Reported by: FAROOQ GONZALEZ on 10/03/11 0915 Calcium Carbonate (Calcium) 600 Mg Tablet, 600 MG PO BID, (Reported) Entered as Reported by: CARLOS ALBERTO JESUS on 05/29/15 0943 Calcium Polycarbophil (Fiber Therapy) 625 Mg Tablet, 625 MG PO DAILY, (Reported) Entered as Reported by: BLANCO HENNING on 04/23/14 0954 Cholecalciferol (Vitamin D3) (Vitamin D3) 4,000 Unit Capsule, 5,000 UNIT PO DAILY, (Reported) Entered as Reported by: FAROOQ GONZALEZ on 10/03/11 0915 Cyanocobalamin (Vitamin B-12) (Vitamin B-12) 5,000 Mcg Tab.rapdis, 5,000 MCG PO DAILY, (Reported) Entered as Reported by: PASTORA CORCORAN on 02/13/13758 Dicyclomine Hcl (Dicyclomine Hcl) 10 Mg Capsule, 10 MG PO TID, (Reported) Entered as Reported by: FAROOQ GONZALEZ on 10/03/11914 Fluoxetine HCl (Prozac) 20 Mg Capsule, 20 MG PO TID, (Reported) Entered as Reported by: CARLOS ALBERTO JESUS on 05/29/15942 Fluoxetine Hcl (Fluoxetine Hcl) 20 Mg Capsule, 3 EACH PO DAILY, (Reported) Entered as Reported by: FAROOQ GONZALEZ on 10/03/11914 Gabapentin (Neurontin) 100 Mg Cap, 200 MG PO TID, (Reported) Entered as Reported by: PASTORA CORCORAN on 02/13/13758 Hydrocodone/Acetaminophen (Lortab 7.5-325 mg Tablet) 1 Each Tablet, 1-2 EACH PO Q6H Prescribed by: JAZIEL SANDOVAL on 06/04/15 09 Hyoscyamine Sulfate (Levsin-Sl) 0.125 Mg Tab.subl, 1-2 TAB SL Q4H Prescribed by: HALLE WATSON on 11/09/162151 Mag Hydrox/Al Hydrox/Simeth (Mylanta Suspension) 30 Ml Oral.susp, 10 ML PO QID PRN for INDIGESTION, (Reported) Entered as Reported by: CARLOS ALBERTO JESUS on 05/29/15 09 Multivitamin (Multi Vitamin Daily) 1 Each Tablet, 1 EACH PO DAILY, (Reported) Entered as Reported by: BLANCO HENNING on 04/23/14 09 Omeprazole (Omeprazole) 40 Mg Capsule.dr, 40 MG PO BID, (Reported) Entered as Reported by: CARLOS ALBERTO JESUS on 05/29/15 09 Pravastatin Sod (Pravachol (Non-Formulary)) 20 Mg Tab, 40 MG PO DAILY, (Reported) Entered as Reported by: FAROOQ GONZALEZ on 10/03/11914 [Zinc] , 50 MG PO DAILY, (Reported) Entered as Reported by: PASTORA CORCORAN on 02/13/13758 Review of Systems Review of Systems Constitutional: no symptoms reported EENTM: no symptoms reported Respiratory: no symptoms reported Cardiovascular: no symptoms reported Gastrointestinal: no symptoms reported Genitourinary: no symptoms reported Musculoskeletal: no symptoms reported Skin: no symptoms reported Psychiatric/Neurological: Headache Hematologic/Lymphatic: No Symptoms Reported Immunological/Allergic: no symptoms reported Past Zumroxp-Wvvweg-Bomyin Hx Patient Social History Tobacco Use?: Yes Tobacco type used: Cigarettes Smoking Status: Current Everyday Smoker Substance use?: No Alcohol Use?: No Pt feels they are or have been: No Seasonal Allergies Seasonal Allergies: No Past Medical History Surgery/Hospitalization HX: IBS, ARHTIRITIS, DIVERTICULITIS, GERD, BARLETT ESOPHAGUS, DEPRESSION Surgeries: Yes (OVARIAN CYST REMOVED, RIGHT INGUINAL HERNIA, ) Abdominal, Appendectomy, Hysterectomy, Oophorectomy, Tubal Ligation Respiratory: Yes (USES INHALER AND NEBULIZER, HAS SPOT ON LUNG-GOING FOR FOLLOW UP) COPD Cardiac: Yes High Cholesterol Neurological: No Female 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 Disorders: 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 History: Hysterectomy, Menopausal Genitourinary: No Gastrointestinal: Yes (SPASTIC COLON) Abdominal Hernia, Gastroesophageal Reflux, Diverticulosis, Hiatal Hernia, Irritable Bowel Musculoskeletal: Yes (CHRONIC FATIGUE, OSTEOARTHRITIS) Osteoporosis, Arthritis, Fibromyalgia, Chronic Back Pain Endocrine: Yes (LOW IMMUNE SYSTEM) HEENT: No Loss of Vision: Bilateral Hearing Impairment: Denies Cancer: No Psychosocial: Yes Anxiety, Depression Integumentary: Yes (HX SHINGLES) Blood Disorders: No Adverse Reaction/Blood Tranf: No Family Medical History No Pertinent Family Hx Physical Exam Vital Signs Vital Signs - First Documented 10/01/21 00:27 Temp 37.0 Pulse 68 Resp 18 B/P (MAP) 144/79 (100) Capillary Refill : Height, Weight, BMI Height: 5'0" Weight: 123lbs. oz. 55.778588oy; 21.63 BMI Method:Actual General Appearance: No Apparent Distress, WD/WN Eyes: Bilateral Eye Normal Inspection, Bilateral Eye PERRL, Bilateral Eye EOMI HEENT: PERRL/EOMI, Normal ENT Inspection Neck: Full Range of Motion, Normal Inspection, Supple, Other (cervical paraspinal muscle spasm present) Respiratory: Chest Non Tender, Lungs Clear Cardiovascular: Regular Rate, Rhythm Gastrointestinal: Non Tender, Soft Neurologic/Psychiatric: Alert, Oriented x3 Skin: Normal Color Progress/Results/Core Measures Suspected Sepsis SIRS Temperature: Pulse: Respiratory Rate: Blood Pressure / Mean: Results/Orders My Orders Orders - VIK TADEO MD Ct Head/Cervical Spine Wo (10/01/21 00:43) Pelvis (10/01/21 00:48) Vital Signs/I&O 10/01/21 00:27 Temp 37.0 Pulse 68 Resp 18 B/P (MAP) 144/79 (100) Capillary Refill : Progress Note : Progress Note 1. FALL: PARACERVICAL MUSCLE SPASM and GROIN STRAIN - CT HEAD/ C-SPINE: no acute findings - XR PELVIS: no fracture - NSAID and Tylenol prn pain - Follow up with PCP in the next 3 to 7 days -Concussion precautions given, sleep monitoring advised -The patient was seen in the ED, and treated appropriately to presentation at a specific point in time. Patient is informed that there is a possibility that disease and illness can evolve and change in acuity rapidly or slowly after patient is discharged from the ER. Precautionary advice given to the patient for immediate return to ER if symptoms worsen or do not resolve, and to seek emergency care sooner rather than later. Pt also advised on the importance of PCP follow up and compliance with management and follow up plan with PCP and/or specialist, as this is part of the management plan. Pt verbally expressed understanding. Departure Impression Primary Impression: Fall Qualified Codes: W19.XXXA - Unspecified fall, initial encounter Additional Impressions: Cervical paraspinal muscle spasm Strain of right groin Disposition: 01 HOME, SELF-CARE Condition: Stable Departure-Patient Inst. Referrals: SHABBIR MAZARIEGOS MD (PCP) Primary Care Physician Patient Instructions: Concussion, Adult (DC), Muscle Spasms (DC), Using Cold for Pain Add. Discharge Instructions: - NSAID and Tylenol prn pain - Follow up with PCP in the next 3 to 7 days -Concussion precautions given - Return to ER if symptoms worsen All discharge instructions reviewed with patient and/or family. Voiced understanding. VIK TADEO MD Oct 01, 2021 00:44
[2021-10-01 04:21] VITALS: BP 151/83
--- NOTE | 2021-10-01 06:44 | Diagnostic Imaging Report ---
PROCEDURE: CT head and CT cervical spine without contrast. TECHNIQUE: Multiple contiguous axial images were obtained through the brain and cervical spine without the use of intravenous contrast. Sagittal and coronal reformations through the cervical spine were then performed. Auto Exposure Controls were utilized during the CT exam to meet ALARA standards for radiation dose reduction. INDICATION: Fall, trauma to the back of the head, neck injury. COMPARISON: CT neck from 01/06/2014 FINDINGS: CT HEAD: The ventricles and cortical sulci appear age-appropriate. There is no midline shift or mass effect. No acute intracranial hemorrhage is seen. There is no CT evidence of acute territorial ischemia. The calvarium appears intact. Visualized paranasal sinuses are clear. CT cervical spine: There is a nondisplaced fracture of the left C3 transverse process extending to the transverse foramen (image 29 series 3). There may also be a nondisplaced fracture of the left C4 transverse process at the transverse foramen (image 33 and 34 series 3). Alignment of the cervical spine appears normal with no spondylolisthesis. There are severe degenerative changes at C5-C6. Vertebral body heights are preserved. No bony fragments or hyperdense fluid collections are seen in the spinal canal. IMPRESSION: 1. Nondisplaced fracture of the left C3 transverse process and possibly the left C4 transverse process. CTA to evaluate the vertebral artery should be considered. 2. No acute intracranial hemorrhage or calvarium fracture. Discrepancy with the overnight report regarding cervical spine fracture discussed with VIK TADEO MD by Dr. Mock, on 10/01/2021 6:32 AM. Dictated by: Dictated on workstation # [id number]
--- NOTE | 2021-10-01 06:44 | Diagnostic Imaging Report ---
History: Pelvic pain TECHNIQUE: Frontal view of the pelvis COMPARISON: CT from 01/25/2017 FINDINGS: No acute fracture or dislocation is seen in the pelvis. Alignment is normal. Joint spaces are preserved. IMPRESSION:. No acute osseous abnormality is seen on this single view of the pelvis. Dictated by: Dictated on workstation # [id number]
[2021-10-01] MEDS ORDERED: OXYC-199 PO (10:13)
[2021-10-01] MEDS ORDERED: CYCL10TA25 PO (10:18)
== END 2021-10-01 04:26 | disposition home or self-care (01) ==
LOC: EDUNIT# 00:04 → ER 00:09
DX: S39.011A Strain of muscle, fascia and tendon of abdomen, initial encounter (principal); M62.830 Muscle spasm of back; F17.210 Nicotine dependence, cigarettes, uncomplicated; W01.198A Fall on same level from slipping, tripping and stumbling with subsequent striking against other object, initial encounter; Y92.002 Bathroom of unspecified non-institutional (private) residence as the place of occurrence of the external cause
CPT/HCPCS: 70450; 72125; 72170

== ENCOUNTER 2021-10-01 07:38 | Emergency (ER) | payer MEDICARE, MEDICAID ==
[~2021-10-01] VITALS: Ht 152.4 cm; Wt 61.0 kg
[2021-10-01 08:03] LABS: BASOPHILS # (AUTO) 0.1 10^3/uL (0.0-0.1); BASOPHILS % (AUTO) 0 % (0-10); EOSINOPHILS # (AUTO) 0.3 10^3/uL (0.0-0.3); EOSINOPHILS % (AUTO) 2 % (0-10); HEMATOCRIT 41 % (35-52); LYMPHOCYTES # (AUTO) 2.6 10^3/uL (1.0-4.0); LYMPHOCYTES % (AUTO) 23 % (12-44); MEAN CORPUSCULAR HEMOGLOBIN 33 pg (25-34); MEAN CORPUSCULAR HGB CONC 34 g/dL (32-36); MEAN CORPUSCULAR VOLUME 97 fL (80-99); MEAN PLATELET VOLUME 10.7 fL (9.0-12.2); MONOCYTES # (AUTO) 0.9 10^3/uL (0.0-1.0); MONOCYTES % (AUTO) 7 % (0-12); NEUTROPHILS # (AUTO) 7.8 10^3/uL (1.8-7.8); NEUTROPHILS % (AUTO) 67 % (42-75); PLATELET COUNT 292 10^3/uL (130-400); WHITE BLOOD COUNT 11.7 10^3/uL (4.3-11.0)
[2021-10-01 08:12] LABS: POTASSIUM 3.8 MMOL/L (3.6-5.0)
[2021-10-01 08:13] LABS: CALCIUM 9.7 MG/DL (8.5-10.1)
[2021-10-01] MEDS ORDERED: CATHETER FLUSH 10 ML SYR IV PRN (08:15)
[2021-10-01] MEDS ORDERED: NS 100 ML (IVPB) BAG IV ONE (08:15)
[2021-10-01] MEDS ORDERED: HOLD METFORMIN - RECEIVED CONTRAST 20 ML VIAL IV SCH (08:15)
[2021-10-01] MEDS ORDERED: IOHEXOL 350 MG/ML 100 ML (OMNIPAQUE 350) VIAL IV ONE (08:15)
[2021-10-01 08:17] LABS: CREATININE SERUM 0.78 MG/DL (0.60-1.30)
--- NOTE | 2021-10-01 08:45 | Diagnostic Imaging Report ---
REASON FOR EXAM: Fall. Neck pain. Fractured left C3 transverse process. Evaluate for dissection. TIME OF EXAM: 10/01/2021 8:38 AM COMPARISON: CTA head and neck performed earlier the same date. TECHNIQUE: Contrast-enhanced thin section helical images were obtained from the mediastinum to the sella with the bolus of contrast timed for the optimal opacification of the arterial structures of the neck per departmental CTA protocol. Postprocessing and retro-reconstruction with coronal and sagittal reformatted images of the angiographic views of the vessels were obtained and were reviewed. 3D reformatted images were generated on a separate workstation and were reviewed. Dose reduction techniques were utilized. FINDINGS: The visualized portions of the aortic arch demonstrate no evidence of aneurysm or dissection. There is conventional branching pattern of the great vessels of the aorta. The brachiocephalic artery is normal in course and caliber. The right and left common carotid origins are unremarkable. The origin of the left subclavian artery is patent. The common carotid arteries and internal carotid arteries demonstrate a tortuous course. There is calcified atherosclerotic plaque in the bilateral carotid bulbs and proximal internal carotid arteries without flow-limiting stenosis. No evidence of dissection in the carotid systems. The external carotid arteries are patent and unremarkable. The vertebral arteries are codominant. The origin of the right vertebral artery is seen and is unremarkable. The origin of the left vertebral artery is seen and is unremarkable. There is no focal stenosis seen within the neck. There is no dissection. The vertebral arteries are well visualized to up to the level of the basilar artery. The fracture involving the left transverse process at C3 is again noted. Included views through the lung apices demonstrate no focal consolidation. IMPRESSION: 1. No evidence of stenosis or dissection in the common and internal carotid arteries. 2. No evidence of stenosis or dissection of the vertebral arteries. Dictated by: Dictated on workstation # [id number]
--- NOTE | 2021-10-01 09:40 | ED Fall/Injury ---
General Chief Complaint: Head/Cervical Problems Stated Complaint: NECK FRACTURE Nursing Triage Note: PT BROUGHT IN BY [facility] FROM HOME. PT WAS SEEN IN ER LAST NIGHT FOR FALL IN BATH TUB. PT WAS ASKED TO COME BACK TO ER FOR FURTHER EVALUATION FOR DISCREPANCY ON STAT RAD REPORT. Source: patient Exam Limitations: no limitations History of Present Illness Date Seen by Provider: Oct 01, 2021 Time Seen by Provider: 07:39 Initial Comments This is 61-year-old woman presents to the emergency room at the direction of this provider due to discrepancy noted on CT reads from her visit last night. She had a fall in the bathtub and sustained injury to her left neck and right thigh. Imaging studies were obtained last night including CT of the head and cervical spine. The cervical spine was cleared during her ER visit and the [facility] read did not appreciate any acute bony injuries. The daytime reading group however noted fractures of the transverse processes of C3 and C4 on the left and the location of her pain. Patient was contacted at her home and instructed to stay there in a still position, avoiding head and neck movement. EMS was directed to the home where c-collar was applied and she was brought to the emergency room. She has no neurologic deficits. She complains of persistent pain in the left neck, pain in the right thigh, and headache since her fall last night. She is alert and oriented. The radiologist recommendation for follow-up included CT angiogram for evaluation of the left vertebral artery. Allergies and Home Medications Allergies Coded Allergies: aspirin (Verified Allergy, Intermediate, GI UPSET, 05/29/15) caffeine (Verified Allergy, Unknown, 10/01/21) metronidazole (Verified Allergy, Unknown, 10/01/21) tetracycline (Unverified Allergy, Unknown, 05/29/15) Patient Home Medication List Home Medication List Reviewed: Yes Acetaminophen (Tylenol Arth Pain (Non-Formulary)) 650 Mg Cplt, 650 MG PO BID, (Reported) Entered as Reported by: PASTORA CORCORAN on 02/13/13 0759 Albuterol Sulfate (Ventolin Hfa) 1 Puff Puff, 1 PUFF IH Q4H, (Reported) Entered as Reported by: PASTORA CORCORAN on 02/13/13 0759 Amitriptyline Hcl (Amitriptyline Hcl) 10 Mg Tablet, 1 EACH PO TID, (Reported) Entered as Reported by: FAROOQ GONZALEZ on 10/03/11914 Calcium Carbonate (Calcium) 600 Mg Tablet, 600 MG PO BID, (Reported) Entered as Reported by: CARLOS ALBERTO JESUS on 05/29/15 09 Calcium Polycarbophil (Fiber Therapy) 625 Mg Tablet, 625 MG PO DAILY, (Reported) Entered as Reported by: BLANCO HENNING on 04/23/14 0954 Cholecalciferol (Vitamin D3) (Vitamin D3) 4,000 Unit Capsule, 5,000 UNIT PO DAILY, (Reported) Entered as Reported by: FAROOQ GONZALEZ on 10/03/11 09 Cyanocobalamin (Vitamin B-12) (Vitamin B-12) 5,000 Mcg Tab.rapdis, 5,000 MCG PO DAILY, (Reported) Entered as Reported by: PASTORA CORCORAN on 02/13/13 075 Cyclobenzaprine HCl (Cyclobenzaprine HCl) 10 Mg Tablet, 10 MG PO TID PRN for SPASMS Prescribed by: ETTA HECTOR on 10/01/21 1018 Dicyclomine Hcl (Dicyclomine Hcl) 10 Mg Capsule, 10 MG PO TID, (Reported) Entered as Reported by: FAROOQ GONZALEZ on 10/03/11914 Fluoxetine HCl (Prozac) 20 Mg Capsule, 20 MG PO TID, (Reported) Entered as Reported by: CARLOS ALBERTO JESUS on 05/29/15 09 Fluoxetine Hcl (Fluoxetine Hcl) 20 Mg Capsule, 3 EACH PO DAILY, (Reported) Entered as Reported by: FAROOQ GONZALEZ on 10/03/11914 Gabapentin (Neurontin) 100 Mg Cap, 200 MG PO TID, (Reported) Entered as Reported by: PASTORA CORCORAN on 02/13/13 075 Hydrocodone/Acetaminophen (Lortab 7.5-325 mg Tablet) 1 Each Tablet, 1-2 EACH PO Q6H Prescribed by: JAZIEL SANDOVAL on 06/04/15 09 Hyoscyamine Sulfate (Levsin-Sl) 0.125 Mg Tab.subl, 1-2 TAB SL Q4H Prescribed by: HALLE WATSON on 11/09/162151 Mag Hydrox/Al Hydrox/Simeth (Mylanta Suspension) 30 Ml Oral.susp, 10 ML PO QID PRN for INDIGESTION, (Reported) Entered as Reported by: CARLOS ALBERTO JESUS on 05/29/15 0943 Multivitamin (Multi Vitamin Daily) 1 Each Tablet, 1 EACH PO DAILY, (Reported) Entered as Reported by: BLANCO HENNING on 04/23/14 0953 Omeprazole (Omeprazole) 40 Mg Capsule.dr, 40 MG PO BID, (Reported) Entered as Reported by: CARLOS ALBERTO JESUS on 05/29/15 0943 Oxycodone HCl/Acetaminophen (Percocet 5-325 mg Tablet) 5 Mg-325 Mg Tablet, 1 TAB PO Q4H PRN for PAIN-MODERATE Prescribed by: ETTA HECTOR on 10/01/21 1015 Pravastatin Sod (Pravachol (Non-Formulary)) 20 Mg Tab, 40 MG PO DAILY, (Reported) Entered as Reported by: FAROOQ GONZALEZ on 10/03/11 0915 [Zinc] , 50 MG PO DAILY, (Reported) Entered as Reported by: PASTORA CORCORAN on 02/13/13 0759 Review of Systems Review of Systems Constitutional: no symptoms reported Eyes: No Symptoms Reported Ears, Nose, Mouth, Throat: no symptoms reported Respiratory: no symptoms reported Cardiovascular: no symptoms reported Gastrointestinal: no symptoms reported Genitourinary: no symptoms reported Musculoskeletal: see HPI Skin: no symptoms reported Psychiatric/Neurological: No Symptoms Reported Past Ouqrqbb-Qpaxko-Mjbdgo Hx Patient Social History Tobacco Use?: Yes Tobacco type used: Cigarettes Use of E-Cig and/or Vaping dev: No Substance use?: No Alcohol Use?: No Pt feels they are or have been: No Seasonal Allergies Seasonal Allergies: No Past Medical History Surgery/Hospitalization HX: IBS, ARHTIRITIS, DIVERTICULITIS, GERD, BARLETT ESOPHAGUS, DEPRESSION Surgeries: Yes (OVARIAN CYST REMOVED, RIGHT INGUINAL HERNIA, ) Abdominal, Appendectomy, Hysterectomy, Oophorectomy, Tubal Ligation Respiratory: Yes (USES INHALER AND NEBULIZER, HAS SPOT ON LUNG-GOING FOR FOLLOW UP) COPD Cardiac: Yes High Cholesterol Neurological: No Female 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, Menopausal Genitourinary: No Gastrointestinal: Yes (SPASTIC COLON) Abdominal Hernia, Gastroesophageal Reflux, Diverticulosis, Hiatal Hernia, Irritable Bowel Musculoskeletal: Yes (CHRONIC FATIGUE, OSTEOARTHRITIS) Osteoporosis, Arthritis, Fibromyalgia, Chronic Back Pain Endocrine: Yes (LOW IMMUNE SYSTEM) HEENT: No Loss of Vision: Bilateral Hearing Impairment: Denies Cancer: No Psychosocial: Yes Anxiety, Depression Integumentary: Yes (HX SHINGLES) Blood Disorders: No Adverse Reaction/Blood Tranf: No Family Medical History No Pertinent Family Hx Physical Exam Vital Signs Vital Signs - First Documented 10/01/21 07:39 Pulse 72 Resp 16 B/P (MAP) 149/83 (105) Pulse Ox 97 O2 Delivery Room Air Capillary Refill : Less Than 3 Seconds Height, Weight, BMI Height: 5'0" Weight: 123lbs. oz. 55.236475zn; 26.00 BMI Method:Actual General Appearance: WD/WN, mild distress, thin HEENT: PERRL/EOMI, normal ENT inspection Neck: normal inspection, tender lateral (Left posterior neck tender to palpation), other (C-collar in place) Cardiovascular: regular rate, rhythm, no edema, no murmur Respiratory: lungs clear, normal breath sounds, no respiratory distress Gastrointestinal: non tender, soft Extremities: other (Tenderness and bruising to the right anterior proximal thigh. No pain with rotation of the hip.) Neurologic/Psychiatric: appraisal analyst II-XII nml as tested, no motor/sensory deficits, alert, normal mood/affect, oriented x 3 Skin: normal color, warm/dry Gilbert Coma Score Best Eye Response: (4) Open Spontaneously Best Verbal Response: (5) Oriented Best Motor Response: (6) Obeys Commands Gilbert Total: 15 Progress/Results/Core Measures Results/Orders Lab Results Laboratory Tests Test 10/01/21 07:48 Range/Units White Blood Count 11.7 H 4.3-11.0 10^3/uL Red Blood Count 4.19 3.80-5.11 10^6/uL Hemoglobin 14.0 11.5-16.0 g/dL Hematocrit 41 35-52 % Mean Corpuscular Volume 97 80-99 fL Mean Corpuscular Hemoglobin 33 25-34 pg Mean Corpuscular Hemoglobin Concent 34 32-36 g/dL Red Cell Distribution Width 13.5 10.0-14.5 % Platelet Count 292 130-400 10^3/uL Mean Platelet Volume 10.7 9.0-12.2 fL Immature Granulocyte % (Auto) 0 % Neutrophils (%) (Auto) 67 42-75 % Lymphocytes (%) (Auto) 23 12-44 % Monocytes (%) (Auto) 7 0-12 % Eosinophils (%) (Auto) 2 0-10 % Basophils (%) (Auto) 0 0-10 % Neutrophils # (Auto) 7.8 1.8-7.8 10^3/uL Lymphocytes # (Auto) 2.6 1.0-4.0 10^3/uL Monocytes # (Auto) 0.9 0.0-1.0 10^3/uL Eosinophils # (Auto) 0.3 0.0-0.3 10^3/uL Basophils # (Auto) 0.1 0.0-0.1 10^3/uL Immature Granulocyte # (Auto) 0.1 0.0-0.1 10^3/uL Sodium Level 143 135-145 MMOL/L Potassium Level 3.8 3.6-5.0 MMOL/L Chloride Level 105 98-107 MMOL/L Carbon Dioxide Level 25 21-32 MMOL/L Anion Gap 13 5-14 MMOL/L Blood Urea Nitrogen 14 7-18 MG/DL Creatinine 0.78 0.60-1.30 MG/DL Estimat Glomerular Filtration Rate 86 BUN/Creatinine Ratio 18 Glucose Level 107 H 70-105 MG/DL Calcium Level 9.7 8.5-10.1 MG/DL My Orders Orders - ETTA NIELSEN MD Ct Angio Neck W (10/01/21 07:47) Basic Metabolic Panel (10/01/21 07:58) Cbc With Automated Diff (10/01/21 07:58) Ed Iv/Invasive Line Start (10/01/21 07:58) Iohexol Injection (Omnipaque 350 Mg/Ml 1 (10/01/21 08:15) Received Contrast (Hold Metformin- Contr (10/01/21 08:15) Sodium Chloride Flush (Catheter Flush Sy (10/01/21 08:15) Ns (Ivpb) (Sodium Chloride 0.9% Ivpb Bag (10/01/21 08:15) Oxycodone/Apap 5/325mg Tablet (Percocet (10/01/21 10:15) Medications Given in ED Current Medications Medications Dose Ordered Sig/Isabel Route Start Time Stop Time Status Last Admin Dose Admin Iohexol 75 ml ONCE ONCE IV 10/01/21 08:15 10/01/21 08:16 DC 10/01/21 09:00 75 ML Oxycodone/ Acetaminophen 1 tab ONCE ONCE PO 10/01/21 10:15 10/01/21 10:16 DC 10/01/21 10:23 1 TAB Sodium Chloride 10 ml NEEDED PRN IV 10/01/21 08:15 10/01/21 10:37 DC 10/01/21 09:01 10 ML Sodium Chloride 100 ml ONCE ONCE IV 10/01/21 08:15 10/01/21 08:16 DC 10/01/21 09:01 80 ML Vital Signs/I&O 10/01/21 10/01/21 07:39 10:31 Pulse 72 63 Resp 16 16 B/P (MAP) 149/83 (105) 138/89 Pulse Ox 97 97 O2 Delivery Room Air Room Air Blood Pressure Mean: 105 Progress Progress Note #1: Time: 09:29 Progress Note Situation was again explained to the patient. CT angiogram of the neck was obtained. No injury to the vertebral arteries was noted. Fracture was again seen at C3. C-collar remains in place. Patient is neuro vascularly intact. Consultation with a neurosurgeon or eating disorder specialist is warranted. Patient requested [facility] as her referral. Dr. Langford is been paged and I am awaiting call. Patient has declined pain medication or anxiolytics. Progress Note #2: Time: 09:40 Progress Note Case was reviewed with Dr. Langford. These fractures are presently stable but should be supported with a rigid c-collar. We are obtaining 1 from central supply. Patient is to follow-up in outpatient clinic. Patient was encouraged to reduce smoking and work toward quitting to encourage healing of her cervical fractures. Diagnostic Imaging Diagonstic Imaging: CT Plain Films/CT/US/NM/MRI: other (CT angiogram neck) Comments CT angiogram neck viewed by me and report reviewed. See report below: NAME: LAVERN MONTES [facility] REC#: [id number] PT STATUS: REG ER : 1960 PHYSICIAN: ETTA NIELSEN MD ADMIT DATE: 10/01/21/ER Signed Date of Exam:10/01/21 CT ANGIO NECK W REASON FOR EXAM: Fall. Neck pain. Fractured left C3 transverse process. Evaluate for dissection. TIME OF EXAM: 10/01/2021 8:38 AM COMPARISON: CTA head and neck performed earlier the same date. TECHNIQUE: Contrast-enhanced thin section helical images were obtained from the mediastinum to the sella with the bolus of contrast timed for the optimal opacification of the arterial structures of the neck per departmental CTA protocol. Postprocessing and retro-reconstruction with coronal and sagittal reformatted images of the angiographic views of the vessels were obtained and were reviewed. 3D reformatted images were generated on a separate workstation and were reviewed. Dose reduction techniques were utilized. FINDINGS: The visualized portions of the aortic arch demonstrate no evidence of aneurysm or dissection. There is conventional branching pattern of the great vessels of the aorta. The brachiocephalic artery is normal in course and caliber. The right and left common carotid origins are unremarkable. The origin of the left subclavian artery is patent. The common carotid arteries and internal carotid arteries demonstrate a tortuous course. There is calcified atherosclerotic plaque in the bilateral carotid bulbs and proximal internal carotid arteries without flow-limiting stenosis. No evidence of dissection in the carotid systems. The external carotid arteries are patent and unremarkable. The vertebral arteries are codominant. The origin of the right vertebral artery is seen and is unremarkable. The origin of the left vertebral artery is seen and is unremarkable. There is no focal stenosis seen within the neck. There is no dissection. The vertebral arteries are well visualized to up to the level of the basilar artery. The fracture involving the left transverse process at C3 is again noted. Included views through the lung apices demonstrate no focal consolidation. IMPRESSION: 1. No evidence of stenosis or dissection in the common and internal carotid arteries. 2. No evidence of stenosis or dissection of the vertebral arteries. Dictated by: Dictated on workstation # [id number] Dict: 10/01/2139 Trans: 10/01/21845 [id number] Interpreted by: IFTIKHAR DIAL DO Electronically signed by: IFTIKHAR DIAL DO 10/01/2146 Diagonstic Imaging: CT Plain Films/CT/US/NM/MRI: c-spine, head Comments CT head and C-spine from visit last night viewed by me and report reviewed. See report below: NAME: LAVERN MONTES [facility] REC#: [id number] PT STATUS: DEP ER : 1960 PHYSICIAN: VIK TADEO MD ADMIT DATE: 10/01/21/ER Signed Date of Exam:10/01/21 CT HEAD/CERVICAL SPINE WO PROCEDURE: CT head and CT cervical spine without contrast. TECHNIQUE: Multiple contiguous axial images were obtained through the brain and cervical spine without the use of intravenous contrast. Sagittal and coronal reformations through the cervical spine were then performed. Auto Exposure Controls were utilized during the CT exam to meet ALARA standards for radiation dose reduction. INDICATION: Fall, trauma to the back of the head, neck injury. COMPARISON: CT neck from 01/06/2014 FINDINGS: CT HEAD: The ventricles and cortical sulci appear age-appropriate. There is no midline shift or mass effect. No acute intracranial hemorrhage is seen. There is no CT evidence of acute territorial ischemia. The calvarium appears intact. Visualized paranasal sinuses are clear. CT cervical spine: There is a nondisplaced fracture of the left C3 transverse process extending to the transverse foramen (image 29 series 3). There may also be a nondisplaced fracture of the left C4 transverse process at the transverse foramen (image 33 and 34 series 3). Alignment of the cervical spine appears normal with no spondylolisthesis. There are severe degenerative changes at C5-C6. Vertebral body heights are preserved. No bony fragments or hyperdense fluid collections are seen in the spinal canal. IMPRESSION: 1. Nondisplaced fracture of the left C3 transverse process and possibly the left C4 transverse process. CTA to evaluate the vertebral artery should be considered. 2. No acute intracranial hemorrhage or calvarium fracture. Discrepancy with the overnight report regarding cervical spine fracture discussed with VIK TADEO MD by Dr. Juarez, on 10/01/2021 6:32 AM. Dictated by: Dictated on workstation # [id number] Dict: 10/01/21621 Trans: 10/01/21922 [facility] [id number] Interpreted by: EMILY JUAREZ MD Electronically signed by: EMILY JUAREZ MD 10/01/21922 Diagonstic Imaging: Xray Plain Films/CT/US/NM/MRI: chest Comments NAME: LAVERN MONTES REC#: [id number] PT STATUS: DEP ER : 1960 PHYSICIAN: VIK TADEO MD ADMIT DATE: 10/01/21/ER Signed Date of Exam:10/01/21 PELVIS History: Pelvic pain TECHNIQUE: Frontal view of the pelvis COMPARISON: CT from 01/25/2017 FINDINGS: No acute fracture or dislocation is seen in the pelvis. Alignment is normal. Joint spaces are preserved. IMPRESSION:. No acute osseous abnormality is seen on this single view of the pelvis. Dictated by: Dictated on workstation # [id number] Dict: 10/01/2134 Trans: 10/01/21922 [facility] [id number] Interpreted by: EMILY JUAREZ MD Electronically signed by: EMILY JUAREZ MD 10/01/21922 Departure Impression Primary Impression: Cervical transverse process fracture Qualified Codes: S12.9XXA - Fracture of neck, unspecified, initial encounter Additional Impressions: Fall in bathtub Qualified Codes: W18.2XXA - Fall in (into) shower or empty bathtub, initial encounter Contusion of right thigh Qualified Codes: S70.11XA - Contusion of right thigh, initial encounter Disposition: 01 HOME, SELF-CARE Condition: Stable Departure-Patient Inst. Decision time for Depature: 10:07 Referrals: SHABBIR MAZARIEGOS MD (PCP) Primary Care Physician Patient Instructions: Neck Fracture Add. Discharge Instructions: Use Percocet as prescribed for pain control. You may wish to use a stool softener such as Colace to prevent constipation while on Percocet. This may be purchased [id number]. Use Flexeril as prescribed for muscle spasms in the neck or back if necessary. Wear your collar as much as possible. You may remove it to get dressed or shower. When the collar is off, keep your head and neck as still as possible. Avoid bending or stretching the neck is much as possible. Please call Dr. Langford's office at [phone] as soon as possible to arrange follow-up. Please ask for Lenora. Return to the emergency room immediately or call 911 if you have any neurologic symptoms such as confusion, change in vision, slurred speech, difficulty speaking, inability to understand speech, loss of balance, facial drooping, weakness or numbness of an extremity, or any other unusual neurologic problem. Also return to care promptly if you have escalating pain that is not treated by your pain medication. Call with questions or concerns. All discharge instructions reviewed with patient and/or family. Voiced understanding. Scripts Cyclobenzaprine HCl (Cyclobenzaprine HCl) 10 Mg Tablet 10 MG PO TID PRN for SPASMS, #10 TAB Prov: ETTA NIELSEN MD 10/01/21 Oxycodone HCl/Acetaminophen (Percocet 5-325 mg Tablet) 5 Mg-325 Mg Tablet 1 TAB PO Q4H PRN for PAIN-MODERATE MDD 6, #30 TAB For pain related to cervical spine fracture and thigh contusion Prov: ETTA NIELSEN MD 10/01/21 ETTA NIELSEN MD Oct 01, 2021 09:40
[2021-10-01] MEDS ORDERED: OXYC-199 PO (10:13)
[2021-10-01] MEDS ORDERED: oxyCODONE/APAP 5/325MG (PERCOCET 5) TABLET PO ONE (10:15)
[2021-10-01] MEDS ORDERED: CYCL10TA25 PO (10:18)
[2021-10-01 10:31] VITALS: BP 138/89
== END 2021-10-01 10:37 | disposition home or self-care (01) ==
LOC: EDUNIT# 07:38 → ER 07:39
DX: S12.291A Other nondisplaced fracture of third cervical vertebra, initial encounter for closed fracture (principal); S70.11XA Contusion of right thigh, initial encounter; J44.9 Chronic obstructive pulmonary disease, unspecified; F17.210 Nicotine dependence, cigarettes, uncomplicated; Z79.51 Long term (current) use of inhaled steroids; W18.2XXA Fall in (into) shower or empty bathtub, initial encounter; Y92.002 Bathroom of unspecified non-institutional (private) residence as the place of occurrence of the external cause
CPT/HCPCS: 36415; 70498; 80048; 85025